=== PATIENT | male | born 1960 | race Caucasian/White ===

== ENCOUNTER 2017-05-27 19:19 | Emergency (ER) | payer OTHER ==
[~2017-05-27] VITALS: Ht 177.8 cm; Wt 182.0 kg
[2017-05-27 19:19] VITALS: BP 121/71
[2017-05-27] MEDS ORDERED: PLEASE ENTER ALLERGIES MC SCH ×2 (19:30)
[2017-05-27] MEDS ORDERED: DIPH,PERTUSS(ACELL),TET VAC/PF 0.5 ML IM-VACC ONE ×2 (19:30→20:49)
[2017-05-27] MEDS ORDERED: PLEASE ENTER HEIGHT AND WEIGHT MC SCH (19:30)
[2017-05-27] MEDS ORDERED: LIDOCAINE/PF 1%-EPI 1:200K, 30 ML INFIL ONE (20:00)
[2017-05-27] MEDS ORDERED: BACITRACIN ZINC OINT 500U/GM, 0.9 GM ONE (20:30)
== END 2017-05-27 21:03 | disposition home or self-care (01) ==
LOC: ED 20:57
DX: S51.812A Laceration without foreign body of left forearm, initial encounter (principal); S61.512A Laceration without foreign body of left wrist, initial encounter; W18.2XXA Fall in (into) shower or empty bathtub, initial encounter; Y93.E1 Activity, personal bathing and showering; Y92.002 Bathroom of unspecified non-institutional (private) residence as the place of occurrence of the external cause; Y99.8 Other external cause status
CPT/HCPCS: 12002; 90471; 90715